=== PATIENT | female | born 1945 | race Caucasian/White ===

== ENCOUNTER → 2016-05-28 | Outpatient (CLI) | payer MEDICARE ==
[~2016-05-28] MED LIST: BENADRYL25 MG PO; CRANBERRY TABL1 EACH PO; ESTRACE42.5 GM VG; MEDROL DOSEPAK4 MG PO; ONE DAILY WOME1 EACH PO; PEPCID20 MG PO; TRIMETHOPRIM100 MG PO; VITAMIN B-12500 MC3 PO; VITAMIN D31000 UNI2 PO
== END | disposition home or self-care (01) ==
LOC: CDC 08:12
DX: Z01.810 Encounter for preprocedural cardiovascular examination (principal); M48.06 Spinal stenosis, lumbar region; M43.10 Spondylolisthesis, site unspecified; R26.81 Unsteadiness on feet; G96.8 Other specified disorders of central nervous system; Z88.2 Allergy status to sulfonamides
CPT/HCPCS: 93000

== ENCOUNTER 2016-06-04 07:53 | Inpatient (IN) | payer OTHER, MEDICARE ==
[~2016-06-04] VITALS: Ht 165.1 cm; Wt 87.0 kg
[2016-06-04 08:27] VITALS: BP 138/84
[2016-06-04 17:45] VITALS: BP 129/78
[2016-06-04 17:48] VITALS: BP 129/78
[2016-06-04 20:08] VITALS: BP 143/81
[2016-06-05 00:22] VITALS: BP 102/56
[2016-06-05 04:49] VITALS: BP 120/62
[2016-06-05] MEDS ORDERED: HYDROCODON-ACE1 EAC7 PO (07:24)
[2016-06-05] MEDS ORDERED: TIZANIDINE HCL4 MG PO (07:24)
[2016-06-05 08:25] VITALS: BP 134/69
[2016-06-05 12:27] VITALS: BP 134/69
== END 2016-06-05 15:55 | disposition home or self-care (01) | DRG 455 ==
LOC: 2SOUTH 07:53 → 3EAST 07:53 → 2SOUTH 10:01 → 3EAST 17:44
DX: M48.06 Spinal stenosis, lumbar region (principal); M43.16 Spondylolisthesis, lumbar region; M47.816 Spondylosis without myelopathy or radiculopathy, lumbar region; M46.96 Unspecified inflammatory spondylopathy, lumbar region
CPT/HCPCS: 72100; 76000; J0131; J0690; J1100; J1170; J1580; J2405; J2765; J2930; J3010; J3370; J3480; S0020